=== PATIENT | female | born 1965 | race Caucasian/White ===

== ENCOUNTER 2017-09-21 07:22 | Outpatient (CLI) | payer OTHER | END 2017-09-21 07:24 | disposition home or self-care (01) | LOC: SONOGRAMA 07:22 | DX: E04.2 Nontoxic multinodular goiter (principal) ==

== ENCOUNTER 2024-02-29 07:39 | Outpatient (CLI) | payer OTHER | END 2024-02-29 07:45 | disposition home or self-care (01) | LOC: SONOGRAMA 07:39 | PROVIDERS: ATTEND Pathology Anatomic Pathology & Clinical Pathology | DX: D34 Benign neoplasm of thyroid gland (principal); E07.89 Other specified disorders of thyroid; E04.2 Nontoxic multinodular goiter ==